=== PATIENT | female | born 1970 | race Caucasian/White ===

== ENCOUNTER 2019-05-20 21:33 | Emergency (ER) | payer OTHER ==
[2019-05-20] MEDS ORDERED: SODIUM CHLORIDE 0.9% 1,000 ML IV STA (21:41)
--- NOTE | 2019-05-20 21:57 | XR ---
EXAMINATION TYPE: XR chest 1V portable DATE OF EXAM: 05/20/2019 COMPARISON: NONE HISTORY: Short of breath TECHNIQUE: Single view FINDINGS: Heart appears enlarged. There is no heart failure. There is probably a small infiltrate at the right lung base. The other lung mitchell are clear. There are no hilar masses. Mediastinum is chuy l. Bony thorax is intact. IMPRESSION: Small infiltrate at the right lung base. No heart failure.
--- NOTE | 2019-05-20 21:59 | ED ---
General Adult HPI - General Chief complaint: Shortness of Breath Stated complaint: ANABELLA Time Seen by Provider: 05/20/19 21:39 Source: patient Mode of arrival: ambulatory Limitations: no limitations - History of Present Illness Initial comments: Dictation was produced using [employer] dictation software. please excuse any grammatical, word or spelling errors. Chief Complaint: 48-year-old female with past medical history of illicit drug abuse presents with shortness of breath. History of Present Illness: Patient is 48-year-old female she has past medical history of heavy methamphetamine abuse. She states that over the last hour she's been short of breath. Patient is concerned about Covid 19. She reports being very anxious. She does complain of some mild sinus congestion for the last couple days. Patient has any chest pain. No nausea vomiting. History of COPD or asthma. She does admit to using methamphetamine 2 hours prior to arrival. The ROS documented in this emergency department record has been reviewed and confirmed by me. Those systems with pertinent positive or negative responses have been documented in the HPI. All other systems are other negative and/or noncontributory. PHYSICAL EXAM: General Impression: Alert and oriented x3, not in acute distress HEENT: Normocephalic atraumatic, extra-ocular movements intact, pupils equal and reactive to light bilaterally, mucous membranes moist. Cardiovascular: Heart regular rate and rhythm, S1&S2 audible, no murmurs, rubs or gallops Chest: Able to complete full sentences, no retractions, no respiratory distress Abdomen: Bowel sounds present, abdomen soft, non-tender, non-distended, no organomegaly Musculoskeletal: Pulses present and equal in all extremities, no peripheral edema Motor: no focal deficits noted Neurological: CN II-XII grossly intact, no focal motor or sensory deficits noted Skin: Intact with no visualized rashes Psych: Anxious ED course: 48-year-old female with recent use of methamphetamine presents with shortness of breath. Patient appears anxious at bedside. Vital signs upon arrival shows heart rate 120, pressure 181/114, worse vital signs within acceptable limits. X-ray obtained shows small infiltrate in the right lung base.Laboratory evaluation obtained. CBC, metabolic panels are unremarkable. D-dimer 0.24. Patient given return precautions. Heart rate is improved after intravenous fluids. Patient told to abstain from illicit drug abuse. Patient given return precautions. Patient counseled on 14 days to quarantine and given contact information for [facility] - Related Data Previous Rx's Medication Instructions Recorded Azithromycin [Zithromax Z-pack] 0 mg PO DIRECTED #6 tab 05/20/19 Allergies Allergy/AdvReac Type Severity Reaction Status Date / Time No Known Allergies Allergy Verified 05/20/19 21:38 Review of Systems ROS Statement: Those systems with pertinent positive or pertinent negative responses have been documented in the HPI. ROS Other: All systems not noted in ROS Statement are negative. Past Medical History Past Medical History: No Reported History History of Any Multi-Drug Resistant Organisms: None Reported Past Surgical History: No Surgical Hx Reported Additional Past Surgical History / Comment(s): right humerus repair, Past Psychological History: No Psychological Hx Reported Smoking Status: Current every day smoker Past Alcohol Use History: Occasional Past Drug Use History: Methamphetamine General Exam Limitations: no limitations Course Vital Signs 05/20/19 05/20/19 21:34 22:36 Temperature 99.0 F 98.9 F Pulse Rate 120 H 106 H Respiratory 18 20 Rate Blood Pressure 181/114 O2 Sat by Pulse 99 98 Oximetry Medical Decision Making - Lab Data Result diagrams: 05/20/19 22:00 05/20/19 22:00 Lab Results 05/20/19 05/20/19 05/20/19 Range/Units 22:00 22:00 22:28 WBC 9.1 (3.8-10.6) k/uL RBC 4.19 (3.80-5.40) m/uL Hgb 13.2 (11.4-16.0) gm/dL Hct 39.2 (34.0-46.0) % MCV 93.6 (80.0-100.0) fL MCH 31.4 (25.0-35.0) pg MCHC 33.6 (31.0-37.0) g/dL RDW 14.0 (11.5-15.5) % Plt Count 289 (150-450) k/uL Neutrophils % 78 % Lymphocytes % 15 % Monocytes % 4 % Eosinophils % 1 % Basophils % 0 % Neutrophils # 7.1 (1.3-7.7) k/uL Lymphocytes # 1.4 (1.0-4.8) k/uL Monocytes # 0.4 (0-1.0) k/uL Eosinophils # 0.1 (0-0.7) k/uL Basophils # 0.0 (0-0.2) k/uL D-Dimer 0.24 (<0.60) mg/L FEU Sodium 138 (137-145) mmol/L Potassium 4.0 (3.5-5.1) mmol/L Chloride 104 (98-107) mmol/L Carbon Dioxide 26 (22-30) mmol/L Anion Gap 8 mmol/L BUN 20 H (7-17) mg/dL Creatinine 0.80 (0.52-1.04) mg/dL Est GFR (CKD-EPI)AfAm >90 (>60 ml/min/1.73 sqM) Est GFR (CKD-EPI)NonAf 87 (>60 ml/min/1.73 sqM) Glucose 107 H (74-99) mg/dL Calcium 9.0 (8.4-10.2) mg/dL Disposition Clinical Impression: Dyspnea Disposition: HOME SELF-CARE Condition: Good Instructions (If sedation given, give patient instructions): Cold Symptoms (ED) Additional Instructions: Today you were evaluated for symptoms consistent with upper respiratory infection. There is concern that perhaps your symptomatology may represent Covid 19. Your are stable for discharge, however it is instructed to to seek immediate medical attention especially if you develop worsening symptoms especially respiratory distress. In the meantime please remain in quarantine for 14 days. For any other questions please contact [facility] for here in emergency department or [facility] at [phone] Prescriptions: Azithromycin [Zithromax Z-pack] 0 mg PO DIRECTED #6 tab Is patient prescribed a controlled substance at d/c from ED?: No Referrals: None,Stated [Primary Care Provider] - 1-2 days Time of Disposition: 22:59
[2019-05-20 22:10] LABS: Basophils % (A) 0 %; Eosinophils # (A) 0.1 k/uL (0-0.7); Eosinophils % (A) 1 %; HCT 39.2 % (34.0-46.0); HGB 13.2 gm/dL (11.4-16.0); Lymphocytes # (A) 1.4 k/uL (1.0-4.8); Lymphocytes % (A) 15 %; MCH 31.4 pg (25.0-35.0); MCHC 33.6 g/dL (31.0-37.0); MCV 93.6 fL (80.0-100.0); Monocytes # (A) 0.4 k/uL (0-1.0); Monocytes % (A) 4 %; Neutrophils # (A) 7.1 k/uL (1.3-7.7); Neutrophils % (A) 78 %; Platelet Count 289 k/uL (150-450); RBC 4.19 m/uL (3.80-5.40); WBC 9.1 k/uL (3.8-10.6)
[2019-05-20 22:26] LABS: African American GFR (CKD) >90 (>60 ml/min/1.73 sqM); Anion Gap 8 mmol/L; Blood Urea Nitrogen 20 mg/dL (7-17); Carbon Dioxide 26 mmol/L (22-30); Chloride 104 mmol/L (98-107); Glucose 107 mg/dL (74-99); Non-African American GFR(CKD) 87 (>60 ml/min/1.73 sqM); Sodium 138 mmol/L (137-145)
[2019-05-20 22:40] VITALS: RESP 20; TEMP 98.9
[2019-05-20 23:33] VITALS: BP 148/88; PULSE 98
== END 2019-05-20 23:33 | disposition home or self-care (01) ==
LOC: EC 21:33
DX: R06.00 Dyspnea, unspecified (principal); R06.02 Shortness of breath; R09.81 Nasal congestion; F17.200 Nicotine dependence, unspecified, uncomplicated
CPT/HCPCS: 36415; 71045; 80048; 85025; 85379; 96360; 99285